=== PATIENT | male | born 1970 | race Caucasian/White ===

== ENCOUNTER 2016-12-06 17:55 | Emergency (ER) | payer MEDICAID ==
[~2016-12-06] VITALS: Wt 70.0 kg
[2016-12-06] MEDS ORDERED: LIDOCAINE 2% (MDV) 20 ML INJ INJ STA (18:17)
[2016-12-06] MEDS ORDERED: DIPHTH/TET/ACEL PERTUSS (ADULT) 0.5 ML VIAL IM* ONE (18:30)
--- NOTE | 2016-12-06 19:22 | RADRPT ---
PROCEDURE: Right fifth digit series CLINICAL INDICATION: Pain status post glass injury TECHNIQUE: AP oblique and lateral views COMPARISON: None available FINDINGS: The visualized soft tissues demonstrate soft tissue swelling of the right fifth digit with a volar l aceration of the soft tissues of the distal phalanx. No acute fractures, dislocations or osseous in volvement is noted. No radiodense foreign bodies are present. Normal mineralization and joint spac es are noted. IMPRESSION: 1. No acute fractures, dislocations, or osseous involvement. 2. Soft tissue swelling of the right fifth digit with a volar laceration of the soft tissues of the fifth distal phalanx. 3. No radiodense foreign bodies. RPTAT: HDC .Alyssa Mathew MD, Date Time Electronically viewed and signed by .Alyssa Mathew MD, on 12/06/2016 19:22 .C/
[2016-12-06] MEDS ORDERED: CEPHALEXIN 500 MG CAP PO STA (19:58)
[2016-12-06] MEDS ORDERED: CEPH-443 PO (20:00)
[2016-12-06 20:22] VITALS: BP 115/68; PULSE 78; RESP 20; TEMP 98.6
--- NOTE | 2016-12-06 20:25 | ERD ---
ER Documentation Chief Complaint Date/Time DATE: 12/06/16 TIME: 20:22 Chief Complaint RIGHT HAND PINKY LACERATION FROM A PIECE OF GLASS. NO ACTIVE BLEEDING HPI This is a 46-year-old male presenting to the emergency department complaining of a laceration to the volar aspect of his right fifth digit from a piece of glass that occurred an hour prior to being seen. Patient states the pain is moderate in severity, he does not remember his last tetanus. He denies any foreign body. He denies restricted range of motion ROS All systems reviewed and are negative except as per history of present illness. Medications Home Meds Active Scripts Cephalexin* (Keflex*) 500 Mg Capsule, 500 MG PO QID for 7 Days, CAP Prov:ABDIEL RODRIGUEZ PA-C 12/06/16 Allergies Allergies: Coded Allergies: No Known Allergy (Unverified , 12/06/16) PMhx/Soc Medical and Surgical Hx: pt denies Surgical Hx Hx Cardiac Disorders: Yes (cholesterol) Hx Psychiatric Problems: No Hx Miscellaneous Medical Probl: No Hx Alcohol Use: No Hx Substance Use: No Hx Tobacco Use: No Smoking Status: Never smoker Physical Exam Vitals Vital Signs Date Time Temp Pulse Resp B/P Pulse Ox O2 Delivery O2 Flow Rate FiO2 12/06/16 20:22 98.6 78 20 115/68 98 Room Air 12/06/16 17:58 97.8 70 18 124/77 96 Physical Exam Const: [] Head: Atraumatic General: WD/WN, in no apparent distress, non-toxic appearing HENT: NC/AT Eyes: Conjunctiva normal Neck: Supple Pulm: Normal labored breathing CV: Good capillary refill GI: Non-distended, no guarding Back: No masses Ext: No clubbing, cyanosis, or edema Neuro: Moves on all fours, no neuro deficits, sensation intact Skin: 2.5cm laceration on volar aspect of the right fifth digit that extends to the dorsal through fat tissue full range of motion of the right hand, PIP, DIP No tendon or arterial injury Psych: Normal mood Results 24 hrs Current Medications Medications (Trade) Dose Ordered Sig/Annalisa Route PRN Reason Start Time Stop Time Status Last Admin Dose Admin Lidocaine (Xylocaine 2% (Mdv) 20 ml) 20 ml ONCE STAT INJ 12/06/16 18:17 12/06/16 18:19 DC Diphtheria/ Tetanus/Acell Pertussis (Adacel) 0.5 ml ONCE ONCE IM* 12/06/16 18:30 12/06/16 18:31 DC 12/06/16 18:30 Cephalexin (Keflex) 500 mg ONCE STAT PO 12/06/16 19:58 12/06/16 20:00 DC 12/06/16 20:19 Procedures/MDM MDM: 46-year-old male patient presents to the ER with a 2.5 superficial laceration on the volar aspect of the right fifth digit. My clinical suspicion for fracture, nerve/tendon/arterial injury, FB is low due to physical examination. In the ED, patient was given TDAP and prepared for wound closure. hemodynamically stable and neurovascularly intact pre and post treatment. Prescription Keflex was given for prophylaxis. Discussed two day wound check. Discussed to return to this facility or primary care physician in 10 days for suture removal. Discussed to return to the ER for any signs of infection or if condition worsens. Patient expressed agreement and understanding of the plan. PROCEDURE NOTE: Consent was obtained. Patient was positioned appropriately. Wound was cleansed with Betadine. Approximately 5cc of lidocaine 1% without epinephrine was used as a digital block Copious amount of normal saline was used for irrigation Patient was sterile draped with wound exposed. Wound was closed with good approximation with 12 x 4-0 Ethilon simple interrupted sutures. Procedure tolerated without complications. Wound dressed with bacitracin and sterile gauze. DISPOSITION: stable for discharge home Departure Diagnosis: Primary Impression: Finger laceration Condition: Stable Patient Instructions: Laceration, Hand Referrals: DOCTOR,NOT ON STAFF (PCP) jackson doctora Additional Instructions: WOUND CHECK:CONSULTE A JACKSON MDICO EN 2 leon para jo JACKSON HERIDA. SUTURE REMOVAL:CONSULTE A JACKSON MDICO PARA SACAR JACKSON PUNTOS en 10-12 leon. Visite a jackson mdico maana para un EXAMEN.Regrese a estas instalaciones si no se mejora marcelino esperbamos o marcelino le dijimos. Regrese a estas instalaciones si no se mejora marcelino esperbamos o marcelino le dijimos. [place] toda la medicina karena y marcelino se le indic. ABDIEL RODRIGUEZ PA-C 9, 2017 20:25
== END 2016-12-06 20:23 | disposition home or self-care (01) ==
LOC: FTE 17:55
DX: S61.216A Laceration without foreign body of right little finger without damage to nail, initial encounter (principal); W25.XXXA Contact with sharp glass, initial encounter; Y92.9 Unspecified place or not applicable; Z23 Encounter for immunization
CPT/HCPCS: 12001; 73140; 90715; Z7610; 90471

== ENCOUNTER 2016-12-19 10:13 | Emergency (ER) | payer MEDICAID ==
[~2016-12-19] VITALS: Wt 71.0 kg
[~2016-12-19 10:13] MED LIST: CEPH-443 PO
[2016-12-19] MEDS ORDERED: LIDOCAINE 1% (MDV) 20 ML INJ IM ONE (11:00)
[2016-12-19] MEDS ORDERED: IBUP-1542 PO (11:12)
[2016-12-19] MEDS ORDERED: CLIN-73 PO (11:12)
--- NOTE | 2016-12-19 11:14 | ERD ---
ER Documentation Chief Complaint Date/Time DATE: 12/19/16 TIME: 11:14 Chief Complaint Suture removal HPI 46-year-old male comes emergency room with suture removal from the right fifth digit that was repaired on December 06, 2016. Laceration was from glass. Patient states that he went to an outside facility to get sutures removed 3 days ago and was told that it was likely infected and he did not remove the sutures. He states that he was given Keflex initially which she completed, no further antibiotics. He has an throbbing pain associated with swelling and erythema to the tip. There is no history of fevers or chills. ROS All systems reviewed and are negative except as per history of present illness. Medications Home Meds Active Scripts Ibuprofen* (Motrin*) 600 Mg Tab, 600 MG PO Q6, #30 TAB Prov:HALIE DYKES PA-C 12/19/16 Clindamycin Hcl* (Clindamycin Hcl*) 300 Mg Capsule, 300 MG PO TID for 7 Days, CAP Prov:HALIE DYKES PA-C 12/19/16 Cephalexin* (Keflex*) 500 Mg Capsule, 500 MG PO QID for 7 Days, CAP Prov:ABDIEL RODRIGUEZ PA-C 12/06/16 Allergies Allergies: Coded Allergies: No Known Allergy (Unverified , 12/06/16) PMhx/Soc Hx Cardiac Disorders: Yes (cholesterol) Hx Psychiatric Problems: No Hx Miscellaneous Medical Probl: No Hx Alcohol Use: No Hx Substance Use: No Hx Tobacco Use: No Physical Exam Vitals Vital Signs Date Time Temp Pulse Resp B/P Pulse Ox O2 Delivery O2 Flow Rate FiO2 12/19/16 10:15 98.0 68 18 118/71 99 Physical Exam General: Well-developed, well-nourished. The patient appears in no acute distress. HEENT: Head is normocephalic, atraumatic. No scleral icterus. Neck: Supple. Nontender. Lungs: Clear to auscultation. Normal air movement. Heart: Regular rate and rhythm. S1 and S2 are normal. No murmurs, gallops, or rubs. Abdomen: Nondistended. Extremities: Dorsal aspect of the right fifth digit fingertip. Some of the sutures are intact, no dehiscence, there is a paronychia at the base of the laceration that is approximately 0.3 mm. Laceration is approximately 1.5 cm. Capillary refill less than 2 seconds. Patient has full range motion at DIP, PIP and MCP joint. Neurologic: Alert and oriented 3. No focal deficits. Normal speech and gait. Skin: Normal turgor. No rash or lesions. Results 24 hrs Current Medications Medications (Trade) Dose Ordered Sig/Annalisa Route PRN Reason Start Time Stop Time Status Last Admin Dose Admin Lidocaine (Xylocaine 1% (Mdv) 20 ml) 5 ml ONCE ONCE IM 12/19/16 11:00 12/19/16 11:01 DC Procedures/MDM Suture Removal by me: Sutures removed with tweezers and scissors without incident. Wound shows no evidence of infection, foreign body, neurologic injury, vascular injury, open joint or tendon laceration. Patient to follow up PRN. Abscess Incision and Drainage with irrigation by me: Patient was verbally consented Location: Right fifth digit Anesthetic: Patient declines Technique: 18-gauge needle was used to introduce the center of the paronychia. Complications: Neurovascularly intact post procedure Clean dressing and bacitracin was applied to the wound. 48 hour wound check. Scar minimization instructions given. Patient's skin symptoms have stabilized while they have been evaluated in the department and are appropriate for outpatient care and work up. Exam and w/u not consistent w/ sepsis, deep space infection, or foreign body. Departure Diagnosis: Primary Impression: Encounter for removal of sutures Additional Impression: Paronychia Condition: Good Patient Instructions: Paronychia, Suture Removal, No Complication Additional Instructions: SUTURE REMOVAL:CONSULTE A HOWARD MDICO PARA SACAR HOWARD PUNTOS.PARA LA GRACIELA 5-6 d as.EN [facility] 7-10 leon. HALIE DYKES PA-C December 19, 2016 11:14
== END 2016-12-19 11:32 | disposition home or self-care (01) ==
LOC: FTE 10:13
DX: Z48.02 Encounter for removal of sutures (principal); L03.011 Cellulitis of right finger
CPT/HCPCS: Z7502; Z7610; 99283

== ENCOUNTER 2017-12-18 14:05 | Emergency (ER) | END 2017-12-18 14:37 | disposition home or self-care (01) ==